=== PATIENT | female | born 1980 | race African-American/Black ===

== ENCOUNTER 2016-05-17 09:55 | Emergency (ER) | payer OTHER ==
[~2016-05-17 09:55] MED LIST: BIRTH CONTROL PILL PO; FLAGYL PO; MONISTAT 11 EA; MONISTAT 11 EA TOP; ORTHO TRI-7 DAYS X PO; PRENATAL MULITV1 TAB PO; ZITHROMAX PO
== END 2016-05-17 09:56 | disposition home or self-care (01) ==
LOC: CFTX 09:55
DX: S39.012A Strain of muscle, fascia and tendon of lower back, initial encounter (principal); I10 Essential (primary) hypertension; Z90.710 Acquired absence of both cervix and uterus; Z91.040 Latex allergy status; Z88.0 Allergy status to penicillin; X58.XXXA Exposure to other specified factors, initial encounter; Y92.9 Unspecified place or not applicable
CPT/HCPCS: 96372; 99283; J1885

== ENCOUNTER 2016-07-06 15:30 | Emergency (ER) | payer OTHER ==
--- NOTE | ~2016-07-06 | US96 ---
[facility] A Service of [facility] RADIOLOGY TEXT RESULTS PATIENT: ANAHI NEGRO LOCATION: [facility] : 82 UNIT #: [id number] AGE: [address]: Burt Chand MD SEX: F ORDER DR: [id number] [facility] [address] [place], [place] [address] [id number] MR#: [id number] Acc #: [id number] NAME: ANAHI NEGRO : 1980 SEX: F STUDY DATE/TIME: 07/06/2016 17:57 UNIT: DORA ROOM: STUDY DESCRIPTION: US Pelvic Duplex Complete Attending Physician: Burt Chand M.D. Ordering Physician: Burt Chand M.D. Primary Care Physician: Ghada Gan MEDICAL IMAGING REPORT This report is preliminary unless electronic signature is present EXAM Pelvic sonogram. HISTORY 36-year-old female; hysterectomy 6 years ago. Pelvic pain x2 weeks. History of ovarian cysts. COMPARISON 03/03/2016. TECHNIQUE Real-time examination was performed utilizing both transabdominal and endovaginal scanning. The uterus is surgically absent. The right ovary appears normal, measuring 4.1 cm in greatest length. There is a small complex cyst within the right ovary, measuring 1.7 x 1.4 x 1.4 cm. I suspect this represents an involuting follicle or physiologic cyst. Small amount of free fluid within the pelvis. Left ovary unremarkable. IMPRESSION 1. A 1.7-cm complex cyst, right ovary, probably represents an involuting follicle or physiologic cyst. 2. Small amount of free pelvic fluid, nonspecific, in a woman of reproductive years. 3. Interval resolution of a complex cyst, as noted on the February 2016 study. Dictated by... Tianna Fishman M.D. [facility] A Service [facility] RADIOLOGY TEXT RESULTS PATIENT: ANAHI NEGRO LOCATION: [facility] : 82 UNIT #: [id number] AGE: [address]: Burt Chand MD SEX: F ORDER DR: THIS IS AN ELECTRONICALLY VERIFIED REPORT Tianna Fishman M.D. at 07/07/2016 2:05 PM Iris TD: 07/06/2016 19:16 JOB #: [id number] MEDICAL IMAGING REPORT Page 1 of 1 COPY
[2016-07-06 17:16] LABS: URINE SOURCE CLEAN CATCH
[2016-07-06 17:31] LABS: URINE APPEARANCE CLOUDY; URINE BILIRUBIN NEG (NEG); URINE BLOOD NEG (NEG); URINE COLOR DK YELLOW; URINE GLUCOSE NEG (NEG); URINE KETONE TRACE (NEG); URINE LEUKOCYTE ESTERASE NEG (NEG); URINE NITRATE NEG (NEG); URINE PH 7.5 (5-8); URINE PROTEIN NEG (NEG); URINE SPECIFIC GRAVITY 1.027 (1.003-1.035)
[2016-07-06 17:33] LABS: CULTURE INDICATED? NO
== END 2016-07-06 19:30 | disposition home or self-care (01) ==
LOC: CED 15:30
PROVIDERS: Emergency Medicine
DX: N83.201 Unspecified ovarian cyst, right side (principal); I10 Essential (primary) hypertension; F17.200 Nicotine dependence, unspecified, uncomplicated; Z90.710 Acquired absence of both cervix and uterus; Z98.890 Other specified postprocedural states; Z88.0 Allergy status to penicillin; Z91.040 Latex allergy status; Z79.899 Other long term (current) drug therapy
CPT/HCPCS: 81003; 84703; 93975; 96372; 99284; J1885

== ENCOUNTER 2016-11-01 09:50 | Emergency (ER) | payer OTHER ==
[~2016-11-01] VITALS: Ht 162.6 cm; Wt 98.0 kg
--- NOTE | ~2016-11-01 | US98 ---
[facility] A Service of [facility] RADIOLOGY TEXT RESULTS PATIENT: ANAHI NEGRO LOCATION: [facility] : 82 UNIT #: [id number] AGE: [address]: Patito Yañez APRN SEX: F ORDER DR: [id number] [facility] [address] [place], [place] [address] [id number] E MR#: [id number] Acc #: [id number] NAME: ANAHI NEGRO : 1980 SEX: F STUDY DATE/TIME: 11/01/2016 11:18 UNIT: CFTX ROOM: STUDY DESCRIPTION: US Pelvic Non-OB Complete Attending Physician: Patito Yañez A.P.R.N. Ordering Physician: [facility] MEDICAL IMAGING REPORT This report is preliminary unless electronic signature is present EXAM Ultrasound pelvis 11/01/2016 HISTORY 36-year-old female in the ED complaining of 2-day history of lower abdomen/pelvic pain. Hysterectomy 6 years ago. TECHNIQUE Pelvic ultrasound examination was performed endovaginally. Transabdominal imaging was precluded by an empty urinary bladder. FINDINGS Both ovaries are normal in size and ultrasound appearance, each containing small physiologic follicles and cysts. Dominant hemorrhagic physiologic cyst in the right ovary measures about 1.4 cm. Limited Doppler evaluation documents bilateral ovary blood flow. No suspicious adnexal region mass or significant free pelvic fluid. IMPRESSION 1. Surgically absent uterus. 2. Both ovaries are normal. 3. No suspicious adnexal region mass or significant free pelvic fluid. Dictated by... Balbir Godinez M.D. THIS IS AN ELECTRONICALLY VERIFIED REPORT Balbir Godinez M.D. at 11/02/2016 5:57 AM DIANN/zack TD: 11/01/2016 17:14 [facility] A Service of [facility] RADIOLOGY TEXT RESULTS PATIENT: ANAHI NEGRO LOCATION: [place] : 82 UNIT #: [id number] AGE: [address]: Patito Yañez APRN SEX: F ORDER DR: JOB #: [id number] MEDICAL IMAGING REPORT Page 1 of 1 COPY
[2016-11-01 10:40] LABS: URINE SOURCE CLEAN CATCH
[2016-11-01 10:44] LABS: URINE APPEARANCE CLEAR; URINE BILIRUBIN NEG (NEG); URINE BLOOD NEG (NEG); URINE COLOR DK YELLOW; URINE GLUCOSE NEG (NEG); URINE KETONE TRACE (NEG); URINE LEUKOCYTE ESTERASE TRACE (NEG); URINE NITRATE NEG (NEG); URINE PROTEIN NEG (NEG)
[2016-11-01 10:45] LABS: URBCS1 AUWI 0-2 /[HPF] (0-2); URINE BACTERIA AUWI NEG (NEGATIVE); URINE SQUAMOUS EPITHELIAL CELL FEW /[HPF]; UWBCS1 AUWI 0-2 (0-5)
[2016-11-01 10:46] LABS: CULTURE INDICATED? NO
[2016-11-03 21:25] LABS: CHLAMYDIA TRACH Not Detected (Not Detected); N GONOR Not Detected (Not Detected)
== END 2016-11-01 12:25 | disposition home or self-care (01) ==
LOC: CED 09:50 → CFTX 09:50
PROVIDERS: Nurse Practitioner
DX: N76.0 Acute vaginitis (principal); I10 Essential (primary) hypertension; Z90.710 Acquired absence of both cervix and uterus; F17.210 Nicotine dependence, cigarettes, uncomplicated; Z91.040 Latex allergy status; Z88.0 Allergy status to penicillin
CPT/HCPCS: 76830; 76856; 81003; 87491; 87591; 87808; 87905; 99284